=== PATIENT | female | born 1950 | race Caucasian/White ===

== ENCOUNTER 2022-04-01 12:43 | Outpatient (CLI) | payer OTHER | END 2022-04-01 12:44 | disposition home or self-care (01) | LOC: NUCLEAR 12:43 | PROVIDERS: ATTEND General Practice | DX: Z13.820 Encounter for screening for osteoporosis (principal) ==

== ENCOUNTER 2024-04-05 11:27 | Outpatient (CLI) | payer OTHER | END 2024-04-05 11:28 | disposition home or self-care (01) | LOC: NUCLEAR 11:27 | DX: Z13.820 Encounter for screening for osteoporosis (principal); M81.0 Age-related osteoporosis without current pathological fracture; I10 Essential (primary) hypertension ==